=== PATIENT | female | born 1980 | race Caucasian/White ===

== ENCOUNTER 2016-11-29 09:07 | Emergency (ER) | payer MEDICAID ==
[~2016-11-29] VITALS: Ht 160 cm; Wt 72.0 kg
[~2016-11-29 09:07] MED LIST: IBUP800T25 PO
[2016-11-29 09:09] VITALS: Ht 160 cm; Wt 72.0 kg
--- NOTE | 2016-11-29 09:57 | RADRPT ---
PROCEDURE: US OB. CLINICAL INDICATION: Vaginal bleeding TECHNIQUE: Transabdominal and endovaginal imaging of the gravid uterus is available for review COMPARISON: None available FINDINGS: There is a single intrauterine demonstrating a heart rate of 163 bpm. The crown-rump pete th equals 1.44 cm, giving an estimated gestational age of 7 weeks 6 days by ultrasound criteria. No subchorionic hemorrhage is identified. The ovaries are unremarkable. IMPRESSION: Single live intrauterine with an estimated gestational age of 7 weeks 6 days by ultrasound criteria and an estimated date of delivery of 07/12/2017. RPTAT: HH .Ramila Infante MD, MD Date Time Electronically viewed and signed by .Ramila Infante MD, on 11/29/2016 09:57 .G/
[2016-11-29 10:10] LABS: BASOPHILS % 0.2 % (0.0-2.0); EOSINOPHILS # 0.1 10^3/ul (0.0-0.5); EOSINOPHILS % 1.6 % (0.0-7.0); HEMATOCRIT 38.4 % (37.0-47.0); LYMPHOCYTES # 2.1 10^3/ul (0.8-2.9); LYMPHOCYTES % 24.7 % (15.0-51.0); MEAN CORPUSCULAR HEMOGLOBIN 27.5 pg (29.0-33.0); MEAN CORPUSCULAR HGB CONC 33.9 g/dl (32.0-37.0); MEAN CORPUSCULAR VOLUME 81.4 fl (82.0-101.0); MEAN PLATELET VOLUME 9.7 fl (7.4-10.4); MONOCYTE # 0.6 10^3/ul (0.3-0.9); MONOCYTES % 6.4 % (0.0-11.0); NEUTROPHIL # 5.7 10^3/ul (1.6-7.5); NEUTROPHILS % 66.7 % (39.0-77.0); PLATELET COUNT 304 10^3/UL (140-415); RED BLOOD COUNT 4.72 10^6/ul (4.20-5.40); RED CELL DISTRIBUTION WIDTH 12.2 % (11.5-14.5); WHITE BLOOD COUNT 8.5 10^3/ul (4.8-10.8)
[2016-11-29 10:24] LABS: ADD UMIC YES; UR ASCORBIC ACID NEGATIVE (NEGATIVE); UR BILIRUBIN (Dip) NEGATIVE (NEGATIVE); UR BLOOD (Dip) 2+ mg/dL (NEGATIVE); UR CLARITY CLEAR (CLEAR); UR COLOR YELLOW (YELLOW); UR GLUCOSE (Dip) NEGATIVE (NEGATIVE); UR KETONES (Dip) NEGATIVE (NEGATIVE); UR LEUKOCYTE ESTERASE (Dip) NEGATIVE Leu/ul (NEGATIVE); UR NITRITE (Dip) NEGATIVE (NEGATIVE); UR RBC 3 /HPF (0-5); UR SQUAMOUS EPITHELIAL CELL FEW /HPF (FEW); UR TOTAL PROTEIN (Dip) NEGATIVE (NEGATIVE); UR UROBILINOGEN (Dip) NEGATIVE (NEGATIVE)
--- NOTE | 2016-11-29 15:09 | ERD ---
ER Documentation Chief Complaint Date/Time DATE: 11/29/16 TIME: 15:01 Chief Complaint vaginal bleeding/spotting x today HPI This is a 36-year-old female presents to the ER for vaginal spotting that started today. Patient states she is currently 7 weeks . A0. Patient denies any pelvic pain. She denies any urinary frequency or dysuria. Patient denies any fever or chills. ROS 12 point review of systems was done, all negative except per HPI. 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 HEENT: Atraumatic. CHEST: Clear to auscultation bilaterally. There are no rales, wheezes or rhonchi. HEART: Regular rate and rhythm. No murmurs, clicks, rubs or gallops. ABDOMEN: Soft, nontender and nondistended. BACK: No midline or flank tenderness. NEURO: Alert and oriented. SKIN: There is no apparent rash or petechia. The skin is warm and dry. Result Diagram: 11/29/16 0930 Results 24 hrs Laboratory Tests Test 11/29/16 09:30 White Blood Count 8.510^3/ul Red Blood Count 4.7210^6/ul Hemoglobin 13.0g/dl Hematocrit 38.4% Mean Corpuscular Volume 81.4fl Mean Corpuscular Hemoglobin 27.5pg Mean Corpuscular Hemoglobin Concent 33.9g/dl Red Cell Distribution Width 12.2% Platelet Count 09678^3/UL Mean Platelet Volume 9.7fl Neutrophils % 66.7% Lymphocytes % 24.7% Monocytes % 6.4% Eosinophils % 1.6% Basophils % 0.2% Nucleated Red Blood Cells % 0.0/100WBC Neutrophils # 5.710^3/ul Lymphocytes # 2.110^3/ul Monocytes # 0.610^3/ul Eosinophils # 0.110^3/ul Basophils # 0.010^3/ul Nucleated Red Blood Cells # 0.010^3/ul Urine Color YELLOW Urine Clarity CLEAR Urine pH 6.0 Urine Specific [place] 1.010 Urine Ketones NEGATIVEmg/dL Urine Nitrite NEGATIVEmg/dL Urine Bilirubin NEGATIVEmg/dL Urine Urobilinogen NEGATIVEmg/dL Urine Leukocyte Esterase NEGATIVELeu/ul Urine Microscopic RBC 3/HPF Urine Microscopic WBC 1/HPF Urine Squamous Epithelial Cells FEW/HPF Urine Hemoglobin 2+mg/dL Urine Glucose NEGATIVEmg/dL Urine Total Protein NEGATIVEmg/dl Beta HCG, Quantitative 00197.0mIU/ml [place] [id number] Radiology Main Line: [phone] DIAGNOSTIC IMAGING REPORT Patient: TONYA BRADLEY : 1980 Age: 36 Sex: F MR #: [id number] DOS: 11/29/16 0934 Ordering MD: HAYDEN LEMUS PA-C Location: [facility] Room/Bed: PROCEDURE: US OB. CLINICAL INDICATION: Vaginal bleeding TECHNIQUE: Transabdominal and endovaginal imaging of the gravid uterus is available for review COMPARISON: None available FINDINGS: There is a single intrauterine demonstrating a heart rate of 163 bpm. The crown-rump length equals 1.44 cm, giving an estimated gestational age of 7 weeks 6 days by ultrasound criteria. No subchorionic hemorrhage is identified. The ovaries are unremarkable. IMPRESSION: Single live intrauterine with an estimated gestational age of 7 weeks 6 days by ultrasound criteria and an estimated date of delivery of 07/12/2017. RPTAT: HH .Ramila Infante MD, Date Time Electronically viewed and signed by .Ramila Infante MD, on 11/29/2016 09 :57 .G/ CC: HAYDEN LEMUS Procedures/MDM Differential diagnosis: Threatened , missed , incomplete , ectopic , molar , UTI, pyelonephritis. Patient's ultrasound and bloodwork was all normal at this time, however cannot be completely ruled out. Patient is currently hemodynamically stable and is not in pain. Patient is to follow-up with her primary care doctor within 1-2 days return to ER sooner if symptoms worsen. My medical decision making was shared with the patient she understands and agrees with plan. Departure Diagnosis: Primary Impression: Threatened Condition: Stable Patient Instructions: Possible Miscarriage (Threatened ) Additional Instructions: Llame al doctor MAANA y french roque DOMINGA PARA DENTRO DE 1-2 BUSBY.Dgale a la secretaria que nosotros le instruimos hacer esta dominga.Avise o llame si molina condicin se empeora antes de la dominga. Regresa aqui si peor o no mejor. HAYDEN LEMUS Nov 29, 2016 15:09
== END 2016-11-29 11:25 | disposition home or self-care (01) ==
LOC: FTE 09:07
DX: O20.0 Threatened abortion (principal); Z3A.01 Less than 8 weeks gestation of pregnancy
CPT/HCPCS: 36415; 76801; 81001; 84702; 85025; 86900; 86901; Z7502

== ENCOUNTER 2017-04-17 13:06 | Outpatient (CLI) | payer MEDICAID ==
[~2017-04-17] VITALS: Ht 154.9 cm; Wt 75.8 kg
[2017-04-17 14:20] VITALS: BP 104/54; PULSE 80; RESP 18; Ht 154.9 cm; Wt 75.8 kg
--- NOTE | 2017-04-17 14:42 | RADRPT ---
PROCEDURE: US OB biophysical profile. CLINICAL INDICATION: decreased movements, low GAIL TECHNIQUE: Multiple sonographic images of the pelvis were obtained. The images were reviewed on a PACS workstation. COMPARISON: 11/29/16 FINDINGS: There is a single viable intrauterine gestation. Cardiac activity is present with 154 beats per min [place]. There is a breech presentation. The placenta is posterior. There is no evidence of placental abruption. There is an increased amount of amniotic fluid with an GAIL = 23 cm. Biophysical profile: movement 2/2 tone 2/2. breathing 2/2 GAIL 2/2 Total 12/04 RPTAT: AA . IMPRESSION: Normal biophysical profile. Polyhydramnios. . .Raúl Lockhart MD, Date Time Electronically viewed and signed by .Raúl Lockhart MD, MD on 04/17/2017 14:42 .S/
[2017-04-17] MEDS ORDERED: PREN-93 PO (16:50)
--- NOTE | 2017-04-17 18:46 | PN ---
Triage Information Date/Time Reason for visit: SROM Weeks of Gestation 28 weeks and 1 day /Para 4 para 3 Diabetes: none Hypertention: none Additional information 38-year-old with IUP at 28 weeks and 1 day with care with Dr. Parham was sent from the clinic for rule out trauma. Reported had some leaking since yesterday. Denies any vaginal bleeding or decreased movement or any other complaint. Objective Vital Signs Date Time Temp Pulse Resp B/P Pulse Ox O2 Delivery O2 Flow Rate FiO2 04/17/17 14:20 99.1 80 18 104/54 99 Room Air Heart Rate: 130's Heart Rate Comments Category 1. appropriate for gestational age Contractions: None Exam General appearance: Alert and oriented 4. Does not appear to be in any acute distress. Abdomen: Soft, gravid, fundal height consistent with gestational age NST: Category 1 PE: 12/04 GAIL: 23 consistent with polyhydramnios speculum examination: Negative pooling negative nitrazine R OM test negative Results/Medications Results 24 hrs Laboratory Tests Test 04/17/17 16:00 Membranes Rupture NEGATIVE Imaging Results PROCEDURE: US OB biophysical profile. CLINICAL INDICATION: decreased movements, low GAIL TECHNIQUE: Multiple sonographic images of the pelvis were obtained. The images were reviewed on a PACS workstation. COMPARISON: 11/29/16 FINDINGS: There is a single viable intrauterine gestation. Cardiac activity is present with 154 beats per minute. There is a breech presentation. The placenta is posterior. There is no evidence of placental abruption. There is an increased amount of amniotic fluid with an GAIL = 23 cm. Biophysical profile: movement 2/2 tone 2/2. breathing 2/2 GAIL 2/2 Total 12/04 RPTAT: AA . IMPRESSION: Normal biophysical profile. Polyhydramnios. . Disposition: Discharge Assessment/Plan IUP atg 28 weeks and 1 day No evidence of premature rupture membrane No evidence of labor GAIL consistent with polyhydramnios Patient discharged home. Follow-up with primary OB within 24-48 hours or sooner as needed Strict labor precaution and kick counts discussed with the patient. Patient verbalized understanding ARDALAN,JUAN JOSE MD Apr 17, 2017 18:46
[2017-04-17 20:27] LABS: ADD UMIC YES; UR ASCORBIC ACID 40 mg/dL (NEGATIVE); UR BILIRUBIN (Dip) NEGATIVE (NEGATIVE); UR BLOOD (Dip) 1+ mg/dL (NEGATIVE); UR CLARITY CLOUDY (CLEAR); UR COLOR YELLOW (YELLOW); UR GLUCOSE (Dip) NEGATIVE (NEGATIVE); UR KETONES (Dip) NEGATIVE (NEGATIVE); UR LEUKOCYTE ESTERASE (Dip) 3+ Leu/ul (NEGATIVE); UR NITRITE (Dip) NEGATIVE (NEGATIVE); UR RBC 10 /HPF (0-5); UR SPECIFIC GRAVITY (Dip) 1.016 (1.003-1.030); UR SQUAMOUS EPITHELIAL CELL FEW /HPF (FEW); UR TOTAL PROTEIN (Dip) NEGATIVE (NEGATIVE); UR UROBILINOGEN (Dip) NEGATIVE (NEGATIVE)
== END 2017-04-17 17:30 | disposition home or self-care (01) ==
LOC: L-D 13:06 → OBT 13:06
PROVIDERS: ATTEND Obstetrics & Gynecology
DX: O40.3XX0 Polyhydramnios, third trimester, not applicable or unspecified (principal); O09.523 Supervision of elderly multigravida, third trimester; Z3A.28 28 weeks gestation of pregnancy
CPT/HCPCS: 76818; 81001; 84112; Z7500; G0463